=== PATIENT | male | born 1935 | race Caucasian/White ===

== ENCOUNTER 2016-11-25 11:04 | Emergency (ER) | payer MEDICARE, BC ==
--- NOTE | 2016-11-25 12:11 | EDM.PDOC ---
ED HPI GENERAL MEDICAL PROBLEM - General Chief Complaint: General Stated Complaint: MED VIA [facility]- ILL Time Seen by Provider: 11/25/16 11:45 Source of Information: Reports: Patient, Family History Limitations: Reports: No Limitations - History of Present Illness INITIAL COMMENTS - FREE TEXT/NARRATIVE: 81-year-old male with known recurring strokes, also Alzheimer's dementia has become progressively weaker over the past 10-14 days. No fevers or chills. He was on a course of doxycycline up until one week ago due to a "infected tick bite". He's had persistent loose stools. No nausea or vomiting, no shortness of breath, and denies chest pain or headache. This morning he did not have the strength to get out of bed, and his is planning on driving back to [place] so wanted him checked before they left. She is wondering if he had another stroke as he has increased slurred speech and also some drooling from the right side of his face which is more pronounced than usual. 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 Had a recent clinic visit he was hypotensive so his metoprolol was cut in half, he was also started on loperamide for diarrhea. Onset: Unknown/Unsure Location: Reports: Generalized Severity: Moderate Associated Symptoms: Reports: Confusion, Weakness, Other (Diarrhea). Denies: Chest Pain, Cough, Fever/Chills, Nausea/Vomiting, Shortness of Breath - Related Data Allergies Allergy/AdvReac Type Severity Reaction Status Date / Time No Known Allergies Allergy Verified 11/25/16 11:17 Home Meds: Home Meds Carboxymethylcellulose Sodium [Refresh Tears 0.5%] 1 drop PO ASDIRECTED [History] Clopidogrel [Plavix] 75 mg PO ASDIRECTED 10/29/14 [History] Memantine HCl [Namenda] 10 mg PO ASDIRECTED 10/29/14 [History] Metoprolol Tartrate [Lopressor] 12.5 mg PO BID 10/29/14 [History] Mirtazapine [Remeron] 30 mg PO BEDTIME 10/29/14 [History] Simvastatin [Zocor] 20 mg PO BEDTIME 10/29/14 [History] Furosemide [Furosemide] 30 mg PO DAILY 11/25/16 [History] Melatonin/Pyridoxine HCl (B6) [Melatonin 5 mg Tablet] 5 mg PO BEDTIME 11/25/16 [ History] OLANZapine [Olanzapine] 2.5 mg PO BEDTIME 11/25/16 [History] Warfarin Sodium [Warfarin Sodium] 2 mg PO ASDIRECTED 11/25/16 [History] Warfarin Sodium [Warfarin Sodium] 3 mg PO ASDIRECTED 11/25/16 [History] Past Medical History HEENT History: Reports: Impaired Vision Other HEENT History: left central vein stroke, dentures Cardiovascular History: Reports: Afib, Hypertension, Other (See Below) Other Cardiovascular History: polysemia Respiratory History: Reports: None Gastrointestinal History: Reports: Chronic Diarrhea Other Gastrointestinal History: occasional diarrhea Genitourinary History: Reports: Prostate Disorder Musculoskeletal History: Reports: Gout Other Musculoskeletal History: numbness finger tips, left arm/hand numbness heavy on/off- awakens at night- feels like steel, arthritis of back Neurological History: Reports: Alzheimers Disease, CVA Other Neuro History: reduplicative par amensia, pollack'spalsy both sides. 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- made prostrate smaller, removed 2nd bladder Other Neurological Surgeries/Procedures: arthritis of spine Musculoskeletal Surgical History: Reports: Hip Replacement Other Musculoskeletal Surgeries/Procedures:: 2013 right Social & Family History - Tobacco Use Smoking Status *Q: Never Smoker Second Hand Smoke Exposure: No - Caffeine Use Caffeine Use: Reports: None - Alcohol Use Days Per Week of Alcohol Use: 2 Number of Drinks Per Day: 1 Total Drinks Per Week: 2 - Recreational Drug Use Recreational Drug Use: No ED ROS GENERAL - Review of Systems Review Of Systems: See Below Constitutional: Reports: Malaise, Weakness, Decreased Appetite. Denies: Fever, Chills HEENT: Reports: Other (Facial weakness, drooling) Respiratory: Denies: Shortness of Breath Cardiovascular: Denies: Chest Pain GI/Abdominal: Reports: Diarrhea. Denies: Abdominal Pain, Nausea, Vomiting : Reports: Incontinence Skin: Reports: Pallor Neurological: Reports: Confusion, Trouble Speaking, Difficulty Walking, Weakness , Gait Disturbance. Denies: Headache, Syncope Psychiatric: Reports: Hallucinations (Chronic and recurring) ED EXAM, GENERAL - Physical Exam Exam: See Below Exam Limited By: No Limitations General Appearance: Alert, No Apparent Distress Eye Exam: Left Eye: Proptosis, Bilateral Eye: EOMI, PERRL Head: Atraumatic Respiratory/Chest: No Respiratory Distress, Lungs Clear Cardiovascular: Irregularly Irregular GI/Abdominal: Soft, Non-Tender Extremities: Normal Inspection (Strength is symmetric, grasp strength is firm. No peripheral edema.) Neurological: Alert, Slow to Respond, Other (No reproducible asymmetry of the arms or legs with strength or coordination) Psychiatric: Depressed Mood, Flat Affect Skin Exam: Warm, Dry Course - Vital Signs Last Recorded V/S: Last Vital Signs Temp 96.6 F 11/25/16 13:33 Pulse 120 H 11/25/16 17:27 Resp 18 11/25/16 17:01 BP 159/116 H 11/25/16 17:27 Pulse Ox 94 L 11/25/16 17:01 - Orders/Labs/Meds Orders: Active Orders 24 hr Category Date Time Status Head wo Cont [CT] Stat Exams 11/25/16 12:05 Taken Labs: Laboratory Tests 11/25/16 11/25/16 11/25/16 Range/Units 12:04 12:10 12:10 WBC 9.9 (4.5-11.0) K/uL RBC 6.15 H (4.30-5.90) M/uL Hgb 16.9 H (12.0-15.0) g/dL Hct 50.6 (40.0-54.0) % MCV 82 (80-98) fL MCH 28 (27-31) pg MCHC 33 (32-36) % Plt Count 201 (150-400) K/uL Neut % (Auto) 74 H (36-66) % Lymph % (Auto) 10 L (24-44) % [place] % (Auto) 13 H (2-6) % Eos % (Auto) 3 (2-4) % Baso % (Auto) 1 (0-1) % PT 25.3 H (9.5-12.0) sec INR 2.28 H (0.80-1.20) Sodium (140-148) mmol/L Potassium (3.6-5.2) mmol/L Chloride (100-108) mmol/L Carbon Dioxide (21-32) mmol/L Anion Gap (5.0-14.0) mmol/L BUN (7-18) mg/dL Creatinine (0.8-1.3) mg/dL Est Cr Clr Drug Dosing mL/min Estimated GFR (MDRD) (>60) Glucose (74-106) mg/dL Calcium (8.5-10.1) mg/dL Total Bilirubin (0.2-1.0) mg/dL AST (15-37) U/L ALT (12-78) U/L Alkaline Phosphatase (46-116) U/L Total Protein (6.4-8.2) g/dL Albumin (3.4-5.0) g/dL Globulin (2.3-3.5) g/dL Albumin/Globulin Ratio (1.2-2.2) Urine Color [place] Urine Appearance Clear Urine pH 6.0 (4.5-8.0) Ur Specific [place] 1.020 (1.008-1.030) Urine Protein Negative (NEGATIVE) mg/dL Urine Glucose (UA) Normal (NEGATIVE) mg/dL Urine Ketones Negative (NEGATIVE) mg/dL Urine Occult Blood Negative (NEGATIVE) Urine Nitrite Negative (NEGAITVE) Urine Bilirubin Small (NEGATIVE) Urine Urobilinogen 1 (NORMAL) mg/dL Ur Leukocyte Esterase Negative (NEGATIVE) Urine RBC 0-5 (0-5) Urine WBC 0-5 (0-5) Ur Epithelial Cells Rare Amorphous Sediment Rare Urine Bacteria Not seen Urine Mucus Not seen 11/25/16 Range/Units 12:10 WBC (4.5-11.0) K/uL RBC (4.30-5.90) M/uL Hgb (12.0-15.0) g/dL Hct (40.0-54.0) % MCV (80-98) fL MCH (27-31) pg MCHC (32-36) % Plt Count (150-400) K/uL Neut % (Auto) (36-66) % Lymph % (Auto) (24-44) % [place] % (Auto) (2-6) % Eos % (Auto) (2-4) % Baso % (Auto) (0-1) % PT (9.5-12.0) sec INR (0.80-1.20) Sodium 136 L (140-148) mmol/L Potassium 4.2 (3.6-5.2) mmol/L Chloride 103 (100-108) mmol/L Carbon Dioxide 27 (21-32) mmol/L Anion Gap 10.2 (5.0-14.0) mmol/L BUN 21 H (7-18) mg/dL Creatinine 1.2 (0.8-1.3) mg/dL Est Cr Clr Drug Dosing 52.99 mL/min Estimated GFR (MDRD) 58 L (>60) Glucose 172 H (74-106) mg/dL Calcium 8.2 L (8.5-10.1) mg/dL Total Bilirubin 1.0 (0.2-1.0) mg/dL AST 28 (15-37) U/L ALT 28 (12-78) U/L Alkaline Phosphatase 103 (46-116) U/L Total Protein 6.6 (6.4-8.2) g/dL Albumin 2.7 L (3.4-5.0) g/dL Globulin 3.9 H (2.3-3.5) g/dL Albumin/Globulin Ratio 0.7 L (1.2-2.2) Urine Color Urine Appearance Urine pH (4.5-8.0) Ur Specific [place] (1.008-1.030) Urine Protein (NEGATIVE) mg/dL Urine Glucose (UA) (NEGATIVE) mg/dL Urine Ketones (NEGATIVE) mg/dL Urine Occult Blood (NEGATIVE) Urine Nitrite (NEGAITVE) Urine Bilirubin (NEGATIVE) Urine Urobilinogen (NORMAL) mg/dL Ur Leukocyte Esterase (NEGATIVE) Urine RBC (0-5) Urine WBC (0-5) Ur Epithelial Cells Amorphous Sediment Urine Bacteria Urine Mucus Meds: Medications Discontinued Medications Generic Name Dose Route Start Last Admin Trade Name Freq PRN Reason Stop Dose Admin Sodium Chloride 500 mls @ 1,000 mls/hr 11/25/16 12:15 11/25/16 12:18 Normal Saline IV 1,000 mls/hr ASDIRECTED SAM Administration Sodium Chloride 1,000 mls @ 250 mls/hr 11/25/16 14:00 11/25/16 13:48 Normal Saline IV 250 mls/hr ASDIRECTED SAM Administration Metoprolol Tartrate 50 mg 11/25/16 17:20 11/25/16 17:27 Lopressor PO 11/25/16 17:21 50 mg ONETIME ONE Administration - Re-Assessments/Exams Free Text/Narrative Re-Assessment/Exam: 11/25/16 12:[address] of the head will be obtained as well as a CMP and CBC, we'll also check ProTime. I'll give him a 500 mL bolus of normal saline. His vitals are excellent at this time. Pro time is 2.3. CMP and CBC show no significant abnormalities explaining weakness. CT of the head showed atrophy but no acute findings. A full liter of normal saline was given, the patient was then stood and was able to bear weight but couldn't walk, he is just to unsteady. His still wants to try to get him home so she is waiting for her son to come up from [facility] to assist with his care. Patient rested quietly in the emergency room awaiting for his family to come for discharge. 11/25/16 17:37 Patient was moderately hypertensive prior to discharge, he has not had any of his regular medications today so was given 50 mg of metoprolol by mouth. Departure - Departure Time of Disposition: 18:11 Disposition: Home, Self-Care 01 Condition: Fair Clinical Impression: Weakness due to cerebrovascular accident, Dementia due to Alzheimer's disease - Discharge Information Instructions: Near-Syncope, Alzheimer Disease, Dementia Referrals: PCP,None [Primary Care Provider] - Forms: ED Department Discharge Care Plan Goals: Recheck with your primary providers after you get home to assess if any further treatment would be beneficial. - My Orders Last 24 Hours: My Active Orders 11/25/16 12:05 Head wo Cont [CT] Stat - Assessment/Plan Last 24 Hours: My Active Orders 11/25/16 12:05 Head wo Cont [CT] Stat
[2016-11-25] MEDS ORDERED: Sodium Chloride 0.9% 500 ML IV SCH (12:15)
[2016-11-25] MEDS ORDERED: Sodium Chloride 0.9% 1,000 ML IV SCH (14:00)
[2016-11-25] MEDS ORDERED: Metoprolol Tartrate 50 MG Tab PO ONE (17:20)
[2016-11-25 17:29] VITALS: BP 159/116
== END 2016-11-25 18:25 | disposition home or self-care (01) ==
LOC: JP.ED 11:04
DX: I69.398 Other sequelae of cerebral infarction (principal); R53.1 Weakness; H05.20 Unspecified exophthalmos; G30.9 Alzheimer's disease, unspecified; F02.80 Dementia in other diseases classified elsewhere, unspecified severity, without behavioral disturbance, psychotic disturbance, mood disturbance, and anxiety; I10 Essential (primary) hypertension; I48.91 Unspecified atrial fibrillation; E11.9 Type 2 diabetes mellitus without complications; Z79.02 Long term (current) use of antithrombotics/antiplatelets; Z79.899 Other long term (current) drug therapy; Z90.49 Acquired absence of other specified parts of digestive tract; Z96.641 Presence of right artificial hip joint; Z98.890 Other specified postprocedural states
CPT/HCPCS: 36415; 70450; 80053; 81001; 85025; 85610; 96360; 96361; 99285; A9270; J7040; 99284